=== PATIENT | female | born 1950 | race Caucasian/White ===

== ENCOUNTER 2024-04-19 09:32 | Inpatient (IN) ==
--- NOTE | 2024-02-08 15:57 | PAT Medication Instructions ---
Medication Instructions Date of Service February 08, 2024 Home Medications Medication Instructions Recorded meclizine 25 mg tablet 25 mg PO TID PRN dizziness #60 tabs 02/05/22 cholecalciferol (vitamin D3) 100 mcg (4,000 unit) capsule 4,000 units PO Q OT HER DAY biotin 1,000 mcg chewable tablet 1,000 mcg PO QAM vitamin B complex (B Complex-Vitamin B12 tablet) 1 tab PO QAM meclizine 25 mg tablet 25 mg PO TID PRN amlodipine 10 mg tablet (Norvasc) 10 mg PO QAM levothyroxine 75 mcg tablet 75 mcg PO QAM losartan 50 mg tablet 50 mg PO QAM magnesium 1 tab PO QAM naproxen sodium 220 mg capsule (Aleve) 220 mg PO BID PRN simvastatin 10 mg tablet (Zocor) 10 mg PO QAM ASK your surgeon for instructions naproxen sodium 220 mg capsule (Aleve) 220 mg PO BID PRN STOP taking 2 weeks before surgery (or as soon as possible if surgery is within 2 weeks) biotin 1,000 mcg chewable tablet 1,000 mcg PO QAM DO NOT take the morning of surgery cholecalciferol (vitamin D3) 100 mcg (4,000 unit) capsule 4,000 units PO Q OTHER DAY vitamin B complex (B Complex-Vitamin B12 tablet) 1 tab PO QAM losartan 50 mg tablet 50 mg PO QAM magnesium 1 tab PO QAM Take morning of surgery With a small sip of water, OTHERWISE NOTHING TO EAT OR DRINK AFTER MIDNIGHT: meclizine 25 mg tablet 25 mg PO TID PRN(if needed) amlodipine 10 mg tablet (Norvasc) 10 mg PO QAM levothyroxine 75 mcg tablet 75 mcg PO QAM simvastatin 10 mg tablet (Zocor) 10 mg PO QAM Take evening before surgery meclizine 25 mg tablet 25 mg PO TID PRN(if needed) Other Notes If you have any questions please call us at [phone] or [phone] or [phone] or [phone]
--- NOTE | 2024-02-15 09:41 | Anesthesiology Consultation ---
Date of Service February 15, 2024 Assessment & Plan (1) Encounter for pre-operative examination: Infectious disease screening: Per assessment on 02/15/24: No known recent infectious disease contacts or current infectious disease symptoms. Chart Review Chart Review: Acceptable Risk for Surgery and Patient seen in Pre Admission Testing Teaching & Discussion Pre-Anesthesia Teaching/Discussion Notes: Instructed NPO after midnight before surgery,except medications with 15 cc of water. Medication instructions provided according to the PAT guidelines. History Surgery Operation Date: 02/29/24 07:30 Proposed Procedures p L2-L3 Lateral Lumbar Interbody Fusion, Posterior Instrumentation with Cage Placement - David Simeon MD Height/Weight Height: 5 ft 2 in Weight: 70.3 kg Allergies Allergy/AdvReac Type Severity Reaction Status Date / Time No Known Drug Allergies Allergy Verified 02/08/24 13:52 Medications Home Medications Medication Instructions Recorded Confirmed Last Taken cholecalciferol (vitamin D3) 100 4,000 units PO Q OTHER DAY 07/11/19 02/08/24 Unknown mcg (4,000 unit) capsule biotin 1,000 mcg chewable tablet 1,000 mcg PO QAM 12/18/20 02/08/24 Unknown vitamin B complex (B 1 tab PO QAM 05/17/21 02/08/24 Unknown Complex-Vitamin B12 tablet) meclizine 25 mg tablet 25 mg PO TID PRN dizziness #60 tabs 02/05/22 02/08/24 Unknown amlodipine 10 mg tablet (Norvasc) 10 mg PO QAM 02/08/24 02/08/24 Unknown levothyroxine 75 mcg tablet 75 mcg PO QAM 02/08/24 02/08/24 Unknown losartan 50 mg tablet 50 mg PO QAM 02/08/24 02/08/24 Unknown magnesium 1 tab PO QAM 02/08/24 02/08/24 Unknown naproxen sodium 220 mg capsule 220 mg PO BID PRN Pain 02/08/24 02/08/24 Unknown (Aleve) simvastatin 10 mg tablet (Zocor) 10 mg PO QAM 02/08/24 02/08/24 Unknown Past Medical History Medical History Abnormal gait HTN (hypertension) Hyperlipidemia Hypothyroidism Idiopathic polyneuropathy Feet Lumbar radiculopathy Lumbar scoliosis Lumbar spinal stenosis 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 Weakness of right lower extremity Exercise / Class Metabolic Activity II 4-5 Yardwork/Stairs/Walk up hill (one FS: no CP, no SOB) Past Family History Family History Mother Dementia Grandmother (Maternal) Stroke Denies family history of Ovarian cancer Prostate cancer Diabetes Myocardial infarction Breast cancer Lung cancer Colorectal cancer Past Surgical History Surgical History S/P wisdom tooth extraction Past Anesthesia History No Hx of Anesthesia Complications and No Family Hx of Anesthesia Complications History of PONV No Hx of PONV and No Hx of Motion Sickness Social History Smoking Status: Former smoker tobacco type: cigarettes Do You Dip or Chew Tobacco: No Smoking End Date: Very light use as teen Hx Alcohol Use: No Hx Substance Use: No substance use type: does not use Review of Systems Patient denies chest pain, shortness of breath, dyspnea on exertion, fever, chills, cough, wheezing, palpitations. Physical Exam Vital Signs BP 137/75 P 91 TEMP 98.3 SP02 95%RA RESP 18 Physical Full cervical extension range of motion. Full TMJ range of motion. TMD 3 finger breaths Mallampati Score III Dentition: intact, 2 caps Lungs: clear throughout to auscultation Cardiac: regular rate and rhythm, no murmurs noted Spine: normal Carotid arteries: negative bruit Extremities: no LE edema Lab Results Anesthesia Preop Results Results Anesthesia Widget: WBC 8.65 K/ul (4.8-10.8) 02/15/24 Hgb 14.0 g/dl (12.0-16.0) 02/15/24 Hct 41.4 % (37.0-47.0) 02/15/24 Plt 390 K/uL (130-400) 02/15/24 Na 140 mmol/L (136-145) 02/15/24 K 4.1 mmol/L (3.5-5.1) 02/15/24 Cl 104 mmol/L (98-107) 02/15/24 CO2 27 mmol/L (21-32) 02/15/24 BUN 20 mg/dl (6-23) 02/15/24 Creat 0.77 mg/dl (0.6-1.2) 02/15/24 Glucose Level 116 mg/dl (70-99(Fasting)) H 02/15/24 PT 10.3 Seconds (9.0-12.0) 02/15/24 PTT 27 Seconds (21-31) 02/15/24 INR 0.9 (0.9-1.1) 02/15/24 Blood Type A Positive 02/15/24 Antibody Screen NEGATIVE 02/15/24 Testing Electrocardiogram Date: 02/15/24 NSR at 86bpm. "Normal ECG"
[~2024-04-19 09:32] MED LIST: General Order Problem(s) SCH; LR 15ML/HR IV SCH; LR 60ML/HR IV SCH; ceFAZolin 2000MG 2,000 MG/15 ML SYR IV SCH
[2024-04-19] MEDS: LR 15ML/HR IV SCH (10:18)
[2024-04-19] MEDS: ACETAMINOPHEN 500 MG TAB PO SCH (10:18)
[2024-04-19] MEDS: GABAPENTIN 300 MG CAP PO SCH (10:18)
[2024-04-19] MEDS: LR 60ML/HR IV SCH (10:18)
[2024-04-19] MEDS ORDERED: DEXAMETHASONE SOD INJ 4 MG/ML VIAL ONE (11:11)
[2024-04-19] MEDS ORDERED: PROPOFOL IV EMULSION 10 MG/ML 20 ML VIAL IV ONE ×3 (11:11→13:07)
[2024-04-19] MEDS ORDERED: ROCURONIUM BROMIDE 10 MG/ML 5 ML VIAL IV ONE (11:11)
[2024-04-19] MEDS ORDERED: ONDANSETRON INJ 2 MG/ML 2 ML VIAL ONE (11:11)
[2024-04-19] MEDS ORDERED: MIDAZOLAM HCL 1 MG/ML 2ML VIAL ONE (11:11)
[2024-04-19] MEDS ORDERED: LIDOCAINE 2% 2 ML VIAL/AMP(20MG/ML) INFIL ONE ×2 (11:11→13:07)
[2024-04-19] MEDS ORDERED: fentaNYL citrate PF 100 MCG/2 ML VIAL ONE (11:12)
[2024-04-19] MEDS ORDERED: SUGAMMADEX SODIUM 200 MG/2 ML VIAL IV ONE (11:12)
[2024-04-19] MEDS ORDERED: ONDANSETRON INJ 2 MG/ML 2 ML VIAL IV PRN ×2 (11:44→17:11)
[2024-04-19] MEDS ORDERED: ePHEDrine sulfate 50 MG/ML AMP IV PRN (11:44)
[2024-04-19] MEDS ORDERED: ATROPINE SULFATE 0.1 MG/ML 10ML SYR IV PRN (11:44)
--- NOTE | 2024-04-19 12:10 | History & Physical Report ---
Date of Service April 19, 2024 History of Present Illness Primary Care Provider: Joni Dennis, DO 73-year-old female referred here for evaluation for combination of right-sided low back pain but also weakness in the right lower extremity. The patient states that she has slowly been developing weakness in the right leg, she now ambulates using a cane, and dragging her right leg. She does not recall an inciting incident, has been slowly developing over about 2 years, and she is gone from normal ambulation has some occasional right-sided back pain to having difficulty getting in and out of a car and ambulating. Her pain in the lumbosacral spine is in the right lumbosacral region, but it does not tend to radiate. She has some generalized numbness below the knees in both lower extremities. She has been through physical therapy but without any significant benefit. Exam reveals the patient to be able to raise up on toes and heels but tends to favor the right leg and doing so. While seated, she has 1/4 knee reflexes symmetric and ankle reflexes which approach equal but are slightly less at the left ankle. She has appropriate EHL strength and ankle dorsiflexion strength to manual testing. Knee flexion extension strength in the right and left were unremarkable, but the right hip flexion strength is decreased in the 4-4+ range when compared to the opposite side. Straight leg raise is relatively unremarkable. 4 views of the lumbar spine taken at today's office, AP view the hip joints are well-maintained. There is approximately 20 degrees of levoscoliosis in the mid lumbar spine. On the lateral view there is at least grade 1 spondylolisthesis with spondylolysis at L5 notable loss of all disc base height at this level and some associated foraminal stenosis. Degenerative changes are now present also over the remaining lumbar levels with some retrolisthesis at L2-3. Impression: Right leg weakness with hip flexion weakness, some associated lower weakness to a lesser degree, known spondylolysis with spondylolisthesis at L5- S1. Plan: Today in talking with the patient and her , I did review the MRI to a limited degree from several years ago but also the radiographs. At this time I think it be reasonable and appropriate to obtain a new lumbar MRI and based on the findings then discuss whether or not any additional imaging is necessary to discern the source of the weakness in the right leg, they are in agreement with this plan. Allergies Allergy/AdvReac Type Severity Reaction Status Date / Time No Known Drug Allergies Allergy Verified 04/19/24 10:22 Home Medications Medication Instructions Recorded Confirmed Type cholecalciferol (vitamin D3) 100 4,000 units PO Q2D 07/11/19 04/19/24 History mcg (4,000 unit) capsule biotin 1,000 mcg chewable tablet 1,000 mcg PO QAM 12/18/20 04/19/24 History vitamin B complex (B 1 tab PO QAM 05/17/21 04/19/24 History Complex-Vitamin B12 tablet) meclizine 25 mg tablet 25 mg PO TID PRN dizziness #60 tabs 02/05/22 04/19/24 Rx amlodipine 10 mg tablet (Norvasc) 10 mg PO QAM 02/08/24 04/19/24 History magnesium 1 tab PO QAM 02/08/24 04/19/24 History naproxen sodium 220 mg capsule 220 mg PO BID PRN Pain 02/08/24 04/19/24 History (Aleve) simvastatin 10 mg tablet (Zocor) 10 mg PO QAM 02/08/24 04/19/24 History levothyroxine 75 mcg tablet 75 mcg PO QAM #90 tabs 04/05/24 04/19/24 Rx losartan 50 mg tablet 50 mg PO QAM #90 tabs 04/06/24 04/19/24 Rx Past Med/Surg History Problem List Weakness of right lower extremity Degenerative spondylolisthesis Retrolisthesis of vertebrae Foraminal stenosis of lumbar region Lumbar radiculopathy Spondylosis of lumbar spine Lumbar scoliosis Pars defect with spondylolisthesis L5-S1 Spondylolysis of lumbar region HTN (hypertension) 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 Lumbar spinal stenosis Anterolisthesis of lumbosacral spine Hyperglycemia Hypothyroidism Hyperlipidemia Medical History Abnormal gait HTN (hypertension) Hyperlipidemia Hypothyroidism Idiopathic polyneuropathy Feet Lumbar radiculopathy Lumbar scoliosis Lumbar spinal stenosis 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 Weakness of right lower extremity Surgical History S/P wisdom tooth extraction Family History Mother Dementia Grandmother (Maternal) Stroke Denies family history of Ovarian cancer Prostate cancer Diabetes Myocardial infarction Breast cancer Lung cancer Colorectal cancer Social History Smoking Status: Former smoker Age Started Using Tobacco: 16; Age Quit Using Tobacco: 56; packs per day: 0.5; Smoking End Date: in her teens; Second Hand Exposure: No; Do You Dip or Chew Tobacco: No; Tobacco Cessation Education Requested by Patient: No Hx Alcohol Use: No Hx Substance Use: No Preferred Language: Irish Communication Ability: Effective Visual Impairment: Diminished Hearing Ability: Normal Marker Machine Attendant Required: No Beliefs That Will Affect Care: None marital status: Current Living Situation: Spouse current occupational status: retired How many Children do You have: 2 Other Information That Helps Us Care for You: No Feels Safe at Home: Yes Safety Concerns: Feels Safe At This Time Childhood Exposure to Second-Hand Smoke: Yes (father) Diet: regular caffeine: Yes Dental Care, Regularly: Yes Physical Activity Frequency: Daily Seatbelt Use: always Sunscreen Use: No Assistive Devices: Cane and Glasses Assistive Devices Comment: reading glasses Results & Data Results & Data Vital Signs (Past 12 Hours) Vital Signs Temp Pulse Resp BP Pulse Ox O2 Del Method 04/19/24 10:20 36.7 C 93 H 20 163/76 H 94 Room Air
--- NOTE | 2024-04-19 12:10 | History & Physical Bridge Note ---
Date of Service April 19, 2024 History & Physical Bridge Note I have examined the patient, reviewed the History & Physical and in the interval since the performance of the History & Physical I have noted the following changes of clinical significance: no changes noted
--- NOTE | 2024-04-19 12:23 | History & Physical Bridge Note ---
Date of Service April 19, 2024 History & Physical Bridge Note I have examined the patient, reviewed the History & Physical and in the interval since the performance of the History & Physical I have noted the following changes of clinical significance: no changes noted Supervising Physician Co-Signing Physician Notes L2-3 lateral interbody fusion with cage placement posterior instrumentation.
[2024-04-19] MEDS ORDERED: REMIFENTANIL HCL 1 MG VIAL IV ONE (13:07)
[2024-04-19] MEDS ORDERED: KETAMINE HCL 10MG/ML SYR ONE (13:08)
[2024-04-19] MEDS: ceFAZolin 2000MG 2,000 MG/15 ML SYR IV SCH (13:11)
[2024-04-19] MEDS: GELATIN SPONGE 12-7MM ONE (16:36)
[2024-04-19] MEDS: THROMBIN 5000 UNITS KIT ONE (16:36)
[2024-04-19] MEDS: VANCOMYCIN HCL 1000MG/20ML VIAL ONE (16:36)
[2024-04-19] MEDS: BUPIVACAINE/EPINEPHRINE 0.5% MPF 1:200,000 30 ML VIAL ONE (16:38)
--- NOTE | 2024-04-19 17:09 | Post Operative Brief Note ---
PG Immediate Post Op with CF Date of Surgery April 19, 2024 Pre & Post Diagnosis Operation Date: 04/19/24 11:15 Pre-Op Diagnosis: Lumbar Radiculopathy Spondylosis of Lumbar Spine Post-Op Diagnosis: Lumbar Radiculopathy Spondylosis of Lumbar Spine I identified the patient and participated in the time-out.: Yes Procedure Operation Date: 04/19/24 11:15 Actual Procedures p L2-L3 Lateral Lumbar Fusion and Interbody Cage and Nonsegmented Posterior Instrumentation with Decompression, Spinal Cord Monitoring(Not Applicable) - David Simeon MD Surgeon David Simeon MD Briefcase Sewer none Estimated Blood Loss 30 Findings Consistent with Post-Op Diagnosis Specimens Specimen Description: No specimen per surgeon Drains Bliss Catheter (16f inserted prior to procedure start by Roberto Carlos Frazier RN; 10cc in balloon; clear, yellow urine returned)
[2024-04-19] MEDS ORDERED: SOD PHOSPHATE/SOD BIPHOSPHATE ENEMA 132 ML BTL PR PRN (17:11)
[2024-04-19] MEDS ORDERED: MAGNESIUM HYDROXIDE SUSP 30 ML UDC PO PRN (17:11)
[2024-04-19] MEDS ORDERED: NALOXONE HCL 0.4 MG/1 ML VIAL/CARP IV PRN (17:11)
[2024-04-19] MEDS ORDERED: DO NOT ADMINISTER FLU VACCINE PRN (17:11)
[2024-04-19] MEDS ORDERED: ALUMINUM/MAGNESIUM SUSP 30 ML UDC PO PRN (17:11)
[2024-04-19] MEDS ORDERED: DO NOT ADMINISTER PNEUMOCOCCAL VACCINE PRN (17:11)
[2024-04-19] MEDS ORDERED: bisacodyL 10 MG SUPP PR PRN (17:11)
[2024-04-19] MEDS ORDERED: hydrOXYzine HCl 25 MG TAB PO PRN (17:11)
[2024-04-19] MEDS ORDERED: HYDROmorphone INJ 0.5 MG/0.5 ML SYR IV PRN (17:11)
[2024-04-19] MEDS ORDERED: PROMETHAZINE 12.5 MG/50.5 ML BAG IV PRN (17:11)
[2024-04-19] MEDS ORDERED: diphenhydrAMINE Capsule 25 MG CAP PO PRN (17:11)
[2024-04-19] MEDS ORDERED: LORazepam 2 MG/1 ML VIAL IV PRN (17:11)
[2024-04-19] MEDS ORDERED: ACETAMINOPHEN 1,000 MG/100 ML VIAL IV PRN (17:11)
[2024-04-19] MEDS ORDERED: FAMOTIDINE 20 MG TAB PO PRN (17:11)
[2024-04-19] MEDS ORDERED: METOCLOPRAMIDE HCL INJ 5 MG/ML 2 ML VIAL IV PRN (17:11)
[2024-04-19] MEDS ORDERED: LORazepam 0.5 MG TAB PO PRN (17:11)
[2024-04-19] MEDS: fentaNYL citrate PF 100 MCG/2 ML VIAL IV PRN (17:16)
--- NOTE | 2024-04-19 17:29 | Hospitalist Consultation ---
Date of Consultation April 20, 2024 Assessment & Plan (1) Lumbar radiculopathy: s/p L2-L3 Lateral Lumbar Fusion and Interbody Cage and Nonsegmented Posterior Instrumentation with Decompression, Spinal Cord Monitoring(Not Applicable) - David Simeon MD EBL 30cc Labs pending from this morning and will review once back but patient doing well/moving bowels and planning for discharge per primary service. BP stable and discussed could hold off resuming her losartan until at home/checking BP w/ her home cuff Rest of management per primary service (2) HTN (hypertension): Chronic, stable Continue amlodipine 10mg daily Losartan placed on hold for AM to ensure no hypotension/renal impairment but if BP stable/renal function stable on AM labs can plan to resume 04/20 (labs pending currently but as discussed with patient could wait to resume until at home as long as no issues w/ BMP) Consideration for discussion with PCP about possible switch amlodipine to metoprolol for rate control. Of note, patient did have murmur on exam, appears benign/likely aortic stenosis and not symptomatic but unaware of such and discussed should have outpatient follow up/monitoring and may be more beneficial to be on metoprolol w/ her hx hypothyroidism but no prior hx afib and no p alpitations reported (3) Hypothyroidism: Most recent TSH wnl 1.38 last month Continues Synthroid 75mcg daily (4) Hyperlipidemia: Chronic. Last lipid panel Mar 2024 with TRG 180, Cholesterol 227, HDL 68. LDL 134 Remains on simvastatin 10mg daily Rec outpt f/u PCP for possible increase given elevated Cholesterol level for prevention vs dietary changes in f/u discussions however she is aware/reports eating lots of butter Plan Other chronic medical issues Pre-DM: A1c 6.1, not on any medications at home. Rec outpt f/u Thrombocythemia: Ongoing since 2020. Runs in the 400s. Stable on pre-op labs . Vitamin D Deficiency: Vit D last 80.5, Calcium 10.8 and apparently on supplementation but not sure what? 4000IU. Rec outpt f/u PCP for discussion but if taking should likely hold off further to prevent hypercalcemia/issues from such Thank you for allowing hospitalist service to participate in the care of Mrs Bustamante. Hospitalist service will sign off at this time. Please call with any questions/concerns. Supervising Physician Co-Signing Physician Notes The patient was seen by me. The chart was reviewed. Case discussed with ANA LUISA Mas. Agree with assessment and plan History of Present Illness Reason for Consultation: medical management Requesting Physician: Dr Simeon Attending Physician: David Simeon MD History of Present Illness 73yo female with PMHx significant for HTN, HLD, pre-DM, hypothyroidism, neuropathy, thrombocythemia, vitamin d deficiency presented for L2-L3 decompression/fusion with Dr Simeon 04/19. EBL 30cc. Eval in 324, sitting up in bed, anxious for dc. BP 152/76 and HR 104 but denies palpitations and pre-op EKG w/ SR in the 80s. She reports feeling well, wanting to go and cleared by therapy. Discussed follow up with PCP about possible switch amlodipine for metoprolol for BP control. Discussed faint systolic murmur on exam, denies known history of such. No CP/SOB reported and discussed can f/u with PCP for routine monitoring given not having symptoms from such. Good PO intake, moving bowels. Denies fever/chills. Questions/concerns addressed at this time. Allergies Allergy/AdvReac Type Severity Reaction Status Date / Time No Known Drug Allergies Allergy Verified 04/19/24 10:22 Home Medications Medication Instructions Recorded Confirmed Type cholecalciferol (vitamin D3) 100 4,000 units PO Q2D 07/11/19 04/19/24 History mcg (4,000 unit) capsule biotin 1,000 mcg chewable tablet 1,000 mcg PO QAM 12/18/20 04/19/24 History vitamin B complex (B 1 tab PO QAM 05/17/21 04/19/24 History Complex-Vitamin B12 tablet) meclizine 25 mg tablet 25 mg PO TID PRN dizziness #60 tabs 02/05/22 04/19/24 Rx amlodipine 10 mg tablet (Norvasc) 10 mg PO QAM 02/08/24 04/19/24 History magnesium 1 tab PO QAM 02/08/24 04/19/24 History naproxen sodium 220 mg capsule 220 mg PO BID PRN Pain 02/08/24 04/19/24 History (Aleve) simvastatin 10 mg tablet (Zocor) 10 mg PO QAM 07/22/24 10/01/24 History levothyroxine 75 mcg tablet 75 mcg PO QAM #90 tabs 04/05/24 04/19/24 Rx losartan 50 mg tablet 50 mg PO QAM #90 tabs 04/06/24 04/19/24 Rx tramadol 50 mg tablet 50 mg PO TID PRN pain #24 tabs 04/20/24 Rx Patient History Medical History Idiopathic polyneuropathy Feet Lumbar spinal stenosis 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 Lumbar radiculopathy Lumbar scoliosis Abnormal gait Hypothyroidism Hyperlipidemia HTN (hypertension) Surgical History S/P wisdom tooth extraction Family History Mother Dementia Grandmother (Maternal) Stroke Denies family history of Ovarian cancer Prostate cancer Diabetes Myocardial infarction Breast cancer Lung cancer Colorectal cancer Social History Smoking Status: Former smoker Age Started Using Tobacco: 16; Age Quit Using Tobacco: 56; packs per day: 0.5; Smoking End Date: in her teens; Second Hand Exposure: No; Do You Dip or Chew Tobacco: No; Tobacco Cessation Education Requested by Patient: No Hx Alcohol Use: No Hx Substance Use: No Preferred Language: Danish Communication Ability: Effective Visual Impairment: Diminished Hearing Ability: Normal Dimethylaniline Sulfator Operator Required: No Beliefs That Will Affect Care: None marital status: Current Living Situation: Spouse current occupational status: retired How many Children do You have: 2 Other Information That Helps Us Care for You: No Feels Safe at Home: Yes Safety Concerns: Feels Safe At This Time Childhood Exposure to Second-Hand Smoke: Yes (father) Diet: regular caffeine: Yes Dental Care, Regularly: Yes Physical Activity Frequency: Daily Seatbelt Use: always Sunscreen Use: No Assistive Devices: Cane and Glasses Assistive Devices Comment: reading glasses Physical Exam Physical Exam: General: 73yo female sitting up in bed, ready for dc, NAD, appears comfortable HEENT: head atraumatic, normocephalic, mmm, trachea midline Resp: even/unlabored, no crackles/rales, 96% on RA CV: RRR, slightly tachy low 100s up and moving, FAINT SYSTOLIC MURMUR, normal S1/S2, no rub/gallop, no significant edema/calf tenderness GI: +BS, soft/NT : no lea MSK/Neuro: dressing c/d/i, NVI, pulses present, strength equal nonfocal, mild R foot drop (chronic) Psych: AOx3, cooperative with exam Results & Data Results & Data Vital Signs (Past 12 Hours) Vital Signs Temp Pulse Resp BP Pulse Ox O2 Del Method 04/19/24 10:20 36.7 C 93 H 20 163/76 H 94 Room Air PG Care Time/CCT Total # of Minutes Spent Total Time Spent with Patient: Total time spent is greater than 50% in coordination of care (as documented) at patient's floor/unit and/or counseling patient: Coding Level of Care Code 81711 IN/OBS CONSULT LVL 3,45M Diagnoses Lumbar radiculopathy M54.16 HTN (hypertension) I10 Hypothyroidism E03.9 Hyperlipidemia E78.5
--- NOTE | 2024-04-19 17:54 | Fluoroscopy Report ---
FL lumbar spine 2-3V CLINICAL HISTORY: L2-L3 DECOMPRESSION TECHNIQUE: 21 views were obtained with the C-arm in the OR with the above procedure. Total fluoroscop y time was 382 seconds. Radiation dose was 203 mGy. Comparison: Comparison is made to lumbar spine radiographs 03/02/2024 FINDINGS/IMPRESSION: Intraoperative images were obtained of L2-L3 decompression. Please correlate with intraoperative fluoroscopy and operative report. ACT 112: Negative or not required by law. Electronically signed by: Jayant Lord M.D. 04/19/2024 5:52 PM
[2024-04-19] MEDS ORDERED: MECLIZINE HCL 25 MG TAB PO PRN (18:12)
--- NOTE | 2024-04-19 18:48 | Anesthesiology Progress Note ---
Date of Service April 19, 2024 Anesthesia Post Procedure Vital Signs Vital Signs: Temp Pulse Pulse Resp BP Pulse Ox O2 Del Method 04/19/24 18:35 36.4 C L 97 H 17 136/69 96 Nasal Cannula 04/19/24 18:00 36.3 C L 97 H 16 146/70 H 97 Nasal Cannula 04/19/24 17:50 106 H 21 150/78 H 97 Nasal Cannula 04/19/24 17:41 36.4 C L 100 H 16 158/73 H 96 Nasal Cannula 04/19/24 17:40 95 H 12 147/70 H 92 Nasal Cannula 04/19/24 17:30 106 H 15 156/78 H 98 Nasal Cannula 04/19/24 17:20 109 H 19 150/81 H 95 Nasal Cannula 04/19/24 17:11 36.1 C L 112 H 15 138/82 95 Nasal Cannula 04/19/24 10:20 36.7 C 93 H 20 163/76 H 94 Room Air O2 Flow Rate 04/19/24 18:35 2 04/19/24 18:00 2 04/19/24 17:50 2 04/19/24 17:41 2 04/19/24 17:40 2 04/19/24 17:30 2 04/19/24 17:20 2 04/19/24 17:11 2 04/19/24 10:20 Pain Intensity Bilateral Back: Pain Intensity: 5 Back: Pain Intensity: 3 Transfer of Care Handoff Completed per policy Notes Mental Status: alert / awake / arousable Patient Amnestic to Procedure: Yes Nausea / Vomiting: adequately controlled Pain: adequately controlled Airway Patency, RR, SpO2: stable & adequate BP & HR: stable & adequate Hydration State: stable & adequate Anesthetic Complications: no major complications apparent
[2024-04-19] MEDS: oxyCODONE/ACETAMINOPHEN 5mg/325mg TAB PO PRN (20:28)
[2024-04-19] MEDS: DOCUSATE SODIUM/SENNA 50/8.6MG TAB PO SCH (20:28)
[2024-04-19] MEDS: LACTATED RINGER'S 1,000 ML IV SCH (20:28)
[2024-04-20] MEDS: ceFAZolin 1000MG 1,000 MG/7.5 ML SYR IV SCH (01:04)
[2024-04-20] MEDS: LEVOTHYROXINE SODIUM 75 MCG TABLET PO SCH (05:50)
[2024-04-20] MEDS: POLYETHYLENE (MIRALAX) 17 GM PACK PO SCH (05:52)
[2024-04-20 07:12] VITALS: BP 152/76; PULSE 104; RESP 18; TEMP 98.1; O2SAT 96
[2024-04-20] MEDS: MAGNESIUM OXIDE 400 MG TAB PO SCH (07:51)
[2024-04-20] MEDS: amLODIPine BESYLATE 5 MG TAB PO SCH (07:51)
[2024-04-20] MEDS ORDERED: LOSARTAN POTASSIUM 50 MG TAB PO SCH (09:00)
--- NOTE | 2024-04-20 09:12 | Orthopedic Progress Note ---
Date of Service April 20, 2024 Assessment & Plan (1) Weakness of right lower extremity: L2-3 lateral cage placement posterior instrumentation with correction of scoliosis. (2) Degenerative spondylolisthesis: (3) Foraminal stenosis of lumbar region: (4) Retrolisthesis of vertebrae: Subjective Patient is postoperative day from lateral cage placement posterior instrumentation L2-3 with improvement of preoperative symptoms. Review of Systems All systems reviewed & are unremarkable except as noted in HPI & below. Physical Exam Incision sites unremarkable, intact strength in terms of no change from preoperative evaluation. Results & Data Results & Data Laboratory Results . Diagnostic Findings . PG Care Time/CCT Total # of Minutes Spent Total Time Spent with Patient: Total time spent is greater than 50% in coordination of care (as documented) at patient's floor/unit and/or counseling patient: Coding Level of Care Code 83159 Post Operative Follow-Up Diagnoses Weakness of right lower extremity R29.898 Degenerative spondylolisthesis M43.10 Foraminal stenosis of lumbar region M48.061 Retrolisthesis of vertebrae M43.10
--- NOTE | 2024-04-20 09:18 | Discharge Summary ---
Date of Service April 20, 2024 Admission HPI (Per Admitting) Low back pain and right leg weakness, status post day 1 from lateral cage placement and instrumentation at L2-3 with correction of scoliosis. Principal Diagnosis Same as "Discharge Diagnosis" noted below under Discharge Instructions. Discharge Exam Incision sites unremarkable, intact strength in terms of no change from preoperative evaluation. Discharge Data Consultations 04/19/24 17:11 Consult Hospitalist Routine Procedures Performed Operation Date: 04/19/24 11:15 Actual Procedures p L2-L3 Lateral Lumbar Fusion and Interbody Cage and Nonsegmented Posterior I nstrumentation with Decompression, Spinal Cord Monitoring(Not Applicable) - David Simeon MD Ordered Studies 04/19/24 11:15 FL lumbar spine 2-3V Routine Hospital Course (1) Weakness of right lower extremity: L2-3 lateral cage patient posterior instrumentation. (2) Retrolisthesis of vertebrae: (3) Degenerative spondylolisthesis: (4) Lumbar radiculopathy: (5) Foraminal stenosis of lumbar region: PG Care Time/CCT Total # of Minutes Spent Total Time Spent with Patient: Total time spent is greater than 50% in coordination of care (as documented) at patient's floor/unit and/or counseling patient: Discharge Plan Discharge Items Patient Disposition: Home - Self-Care Reason For Visit: Lumbar Radiculopathy, Spondylosis of Lumbar Spine, Discharge Diagnosis: Same as preoperative. Activity: As commented below Lifting: No more than 10 pounds Bathing: May shower/bathe in 3 days Exercise/Sports: Wait until after follow-up appointment Driving/Machine Use: Resume 3 days after discharge Weightbearing: Full weightbearing Non-emergency contact: Surgeon Call non-emergency contact if: your pain is worsening Follow-up/Referrals: Joni Dennis DO [Primary Care Provider] - Diet: Regular Addtl Attending Provider Instructions: Incision site care instructions discussed, prescription for tramadol will be sent through ambulatory chart, follow-up in 2 weeks. Pending Studies at Discharge: No Stand-Alone Forms: [facility], Smoking Cessation Medications and DC Order Prescriptions: Continued levothyroxine 75 mcg tablet 75 mcg PO QAM Qty: 90 1RF losartan 50 mg tablet 50 mg PO QAM Qty: 90 0RF tramadol 50 mg tablet 50 mg PO TID PRN (Reason: pain) Qty: 24 0RF Rx Instructions: Take 1-3 tablets daily as needed cholecalciferol (vitamin D3) 4,000 unit capsule 4,000 units PO Q2D biotin 1,000 mcg tablet,chewable 1,000 mcg PO QAM vitamin B complex [B Complex-Vitamin B12] Tablet 1 tab PO QAM meclizine 25 mg tablet 25 mg PO TID PRN (Reason: dizziness) Qty: 60 0RF magnesium Tablet 1 tab PO QAM simvastatin [Zocor] 10 mg tablet 10 mg PO QAM amlodipine [Norvasc] 10 mg tablet 10 mg PO QAM Held naproxen sodium [Aleve] 220 mg Capsule 220 mg PO BID PRN (Reason: Pain) Hold Instructions: Resume on 06/27/24. Discharge Orders: Discharge Order (Routine); Ordered 04/20/24 Ordered By: David Simeon Admission Data Admit Date/Time: 04/19/24 17:11 Attending Provider: David Simeon Admit Provider: David Simeon Primary Care Provider: Joni Dennis Other Providers: Carlton Gordon; Maryan Cabrera; George Shaffer; Mega Florian; Bradley Bishop; Vicente Cruz; Luna Tesfaye; Teresa Lamar; Liliam Brewer Alicia D.; Patricio Oquendo; Aakash Woodruff; Annabelle Anthony; Thierry Corbett; George Moore; Gurmeet Cardenas; Anita Crowley; Maria Dolores Juan E; Maria Dolores Pugh; Florence Gonzalez; Jacki Brandt; Ariella Wall; Ralph Gill; Heaven Cabral; Nitin Novak; Tra Walker; Viviane Alvarez; Sheila Barrios; Tiarra Liao; Omid Smith; Uriah Gil; Mega Norwood; Bradley Martinez; Salma Schaeffer; Kina Glynn; Nataliya Wilkes; Douglas Amato; Ozzy Elizalde; Santy Hernandez Other Interventions: Discharge Summary Assessment (RN) Last Done: 04/20/24 10:51
[2024-04-20] MEDS: ONDANSETRON 4 MG OD TAB PO PRN (09:49)
[2024-04-20] MEDS ORDERED: ACETAMINOPHEN 500 MG TAB PO PRN (09:53)
[2024-04-20 09:54] LABS: Hematocrit (blood only) 38.2 % (37.0-47.0); Hemoglobin 13.1 g/dl (12.0-16.0); Mean Corpuscular Hemoglobin 31.2 pg (25.0-34.0); Mean Corpuscular Hgb Conc 34.3 g/dL (32.0-36.0); Platelet Count 340 K/uL (130-400); RDW Coefficient of Variation 13.1 % (11.5-14.5); RDW Standard Deviation 43.6 fL (36.4-46.3)
[2024-04-20 10:03] LABS: BUN Creatinine Ratio 19.4 (10-20); Calcium 9.5 mg/dl (8.6-10.3); Creatinine Clr Calc Pharmacy 62.4 ml/min; Est GFR (African American) 95.6 ml/min; Est GFR (Non-African American) 82.5 ml/min; Magnesium 1.7 mg/dl (1.7-2.4); Potassium 3.7 mmol/L (3.5-5.1)
[2024-04-20] MEDS ORDERED: ACETAMINOPHEN 500 MG TAB PO STA (10:10)
[2024-04-20] MEDS: ACETAMINOPHEN 500 MG TAB PO PRN (10:22)
--- NOTE | 2024-04-21 09:07 | Operative Report ---
PG Post Operative Report Pre & Post Diagnosis Operation Date: 04/19/24 11:15 Pre-Op Diagnosis: Lumbar Radiculopathy Spondylosis of Lumbar Spine Post-Op Diagnosis: Lumbar Radiculopathy Spondylosis of Lumbar Spine I identified the patient and participated in the time-out.: Yes Procedure Operation Date: 04/19/24 11:15 Actual Procedures p L2-L3 Lateral Lumbar Fusion and Interbody Cage and Nonsegmented Posterior Instrumentation with Decompression, Spinal Cord Monitoring(Not Applicable) - David Simeon MD Surgeon David Simeon MD Racecar Driver none Estimated Blood Loss 30 Findings Consistent with Post-Op Diagnosis Specimens none Description of Procedure 1. Left L2-3 lateral interbody arthrodesis. (40518) 2. Lateral interbody cage, NuVasive cohere, 10 x 18 x 45 mm lordotic. (52547) 3. Posterior nonsegmental instrumentation, NuVasive reline. (23801) Patient was taken operating room and after expectations carefully positioned a right lateral decubitus left side of position and secured to the table routine fashion for a lateral approach to the lumbar spine. Preprepped was performed, I then made adjustments in the position and brought in fluoroscopy for evaluating the L2-3 segment. After making adjustments to the table, the skin was marked for the approximate location of the incision followed by prepping and draping. A transverse incision was then made over the the lumbar spine down in routine fashion to the lateral aspect of the L2-3 interspace, this is confirmed fluoroscopically and also via monitoring. The initial dilator was then inserted and advanced down to the midportion of the L2-3 disc space, and confirmed fluoroscopically and also for monitoring. The guidewire was then placed followed by the additional dilators, and then moving onto the access apparatus. Visualization was then made followed by inspection with the probe and then placement of the kelby without any issues. I then began the procedure with a lateral annulotomy followed by then a sterile removal of disc material from the interspace. This also included inserting dilators which then aided in restoring the alignment of the L2 and L3 vertebral bodies which were in levoscoliosis. This process continued with additional cleaning of the disc space and removal, from the endplates followed by then evaluating with trials, the size noted was selected for the interspace. Fusion materials were then placed inside the cage and also within the disc space, and this was then tapped into position without issue. With excellent position noted on fluoroscopy then placed vancomycin powder followed by then removal of the access apparatus without issue. The operative site was closed with some 0 and 2-0 Vicryl sutures followed by octavia for the skin. Patient was then repositioned prone on the Dwayne frame, and after doing so followed by prepping draping after I marked for the approximate location of the incisions. After prepping and draping, fluoroscopy was brought in and made the incisions on either side of midline for the insertion of the pedicle screws. The initial Jamshidi was then inserted first at the L3 and advanced into the intervertebral body using a combination of fluoroscopy and monitoring. This in place, and I followed this with then insertion of the guidewires, then moved to the L to level where the same procedure performed with insertion of the Jamshidi needle was using fluoroscopic control into the vertebral body bilaterally followed by insertion of guidewires. Guidewires were then followed with insertion 5.5 mm tap once again using monitoring and fluoroscopy, and then followed with insertion of 6.5 millimeter screws 45 mm in length advanced into the vertebral bodies at both L2 and L3. Once this was in place, I then inserted the setscrews and the screws were then inserted and tightened down, this was after some slight compression on the left and distraction on the right was performed to improve the overall alignment, all screws were torqued to proper alignment. Final images were obtained, the operative sites were irrigated with normal saline solution followed by closure with vancomycin powder placed both with 0 Vicryl and 2-0 Vicryl sutures and octavia for the skin. Sterile dressing was applied. Patient tolerated procedure well was taken recovery room in satisfactory condition. I attest to the content of the Intraoperative Record and any orders documented therein. Any exceptions are noted below.
== END 2024-04-20 11:26 | disposition home or self-care (01) | DRG 451 ==
LOC: ASU 09:32 → 3E 17:11